=== PATIENT | male | born 1960 | race Two or more races ===

== ENCOUNTER → 2022-06-24 08:56 | Outpatient (BNVA) | payer OTHER, SELFPAY | PROVIDERS: PCP Internal Medicine; Referring Provider Internal Medicine; Visit Provider Physician Assistant | DX: Z01.818 Encounter for other preprocedural examination (principal) | CPT/HCPCS: 99202 ==

== ENCOUNTER 2022-12-21 10:36 | Day surgery (SDC) | payer OTHER, SELFPAY ==
[2022-12-16 14:02] VITALS: BMI 33.4
--- NOTE | 2022-12-20 12:58 | P.CONAN_ITS ---
HPI - Anesthesia Eval Consult details Narrative: 62yo M for Colonoscopy Eliquis for DVT PMFSH Active Problems Active Problems: All Active Problems (Updated 12/16/22 @ 13:56 by Pearl Platt RN) Encounter for screening colonoscopy (Acute) DVT (deep venous thrombosis) (Acute) Past Medical History Medical History (Updated 12/16/22 @ 13:56 by Pearl Platt RN) DM type 2 (diabetes mellitus, type 2) DVT (deep venous thrombosis) HTN (hypertension) Hyperlipidemia Family History Family History Mother Lung cancer Maternal Grandmother Diabetes Surgical History Surgical History Hx of colonoscopy Hx of laparoscopic gastric banding Social History Social History (Updated 10/18/22 @ 13:58 by Maria Ferrari) Household Members: Spouse and Children Household Members Other:: lives with - 35 years Housing: Apartment Are you a primary manager progressive care to a significant other at home: No Do you presently have visiting nurse or other home services: No Alcohol intake: former Patient Tobacco Use Status: Former Tobacco user service: No Current occupational status: employed 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 Meds Allergies Allergy/AdvReac Type Severity Reaction Status Date / Time No Known Allergies Allergy Verified 06/24/22 09:02 Home Medications Medication Instructions Recorded Confirmed Last Taken Type lisinopril 40 mg tablet 40 mg PO DAILY 06/24/22 12/16/22 12/19/22 History metformin 1,000 mg tablet 1,000 mg PO BID 06/24/22 12/16/22 12/19/22 History apixaban 5 mg tablet (Eliquis) 1 tab PO BID 10/18/22 12/16/22 12/19/22 History dulaglutide 0.75 mg/0.5 mL 1 syringe subcut QWEEK 10/18/22 12/16/22 12/20/22 History subcutaneous pen injector (Trulicity) hydrocortisone 2.5 % topical 2.5 appl topical Q12H 10/18/22 12/16/22 12/19/22 History ointment simvastatin 40 mg tablet 1 tab PO BEDTIME 10/18/22 12/16/22 12/19/22 History Exam Exam Date and Time: December 20, 2022 1258 Height,Weight and Vital Signs: Height 5 ft 5 in Weight 91.172 kg Pertinent Lab Results Pertinent Lab Results: Laboratory Tests 10/18/22 10/18/22 14:23 14:23 WBC 5.9 Hgb 14.6 Hct 45.2 Plt Count 309 Sodium 141 Potassium 4.4 Chloride 106 Carbon Dioxide 25 BUN 15 Creatinine 0.84 Assessment and Plan Assessment Anesthesia Assessment: Chart Reviewed
[2022-12-21 10:37] VITALS: BP 120/75; PULSE 73; RESP 20; TEMP 36.4; O2SAT 97; BMI 33.4
[2022-12-21 10:52] LABS: Glucose, Whole Blood 105 mg/dL (60-115)
[2022-12-21] MEDS: Lactated Ringers 1,000 ML 100 ML IVCONT (11:02)
--- NOTE | 2022-12-21 12:39 | MHC.SHP ---
Pre-Procedural Eval Section A Date of Service: 12/21/22 Section B Chief Complaint: Screening Relevant Family History (Specify if Yes): No Relevant Social History: None Present Medications: see Short Stay Collaborative assessment Medical History: Significant History (DM type 2 (diabetes mellitus, type 2) DVT (deep venous thrombosis) HTN (hypertension) Hyperlipidemia) History of Previous Operations: Relevant previous surgery/procedure and date(s) (gastric banding, colonoscopy ) Allergies: Allergies Allergy/AdvReac Type Severity Reaction Status Date / Time No Known Allergies Allergy Verified 06/24/22 09:02 Review of Systems Sugical H&P ROS: Negative: Constitution, Cardiovascular, Respiratory, Neurological, Psychiatric, Hem-Onc, Allergic/Immunologic, Gastrointestinal, Genitourinary, Musculoskeletal, Integumentary, Endocrine and Eyes/Ears/Nose/Throat Exam Surgical H&P Exam: Normal: HEENT, Normal: Heart, Normal: Lungs, Normal: Extremities, Normal: Abdomen, Normal: Skin and Normal: Neurological Plan Diagnosis/Plan: Unchanged I have reviewed the history and physical and performed a pertinent physical examination on my patient. No changes have occurred unless specified. Time Spent With Patient Time: Total time managing care of this patient today ____ minutes.
--- NOTE | 2022-12-21 12:41 | W.PM.OPN ---
Operative Note Operative Note Date of Service: 12/21/22 Narrative: Operative Information Procedure Description: Colonoscopy Indication: screening Anesthesia: MAC COLONOSCOPY Instrument: Olympus variable stiffness pediatric scope 190L Colonoscopy Monitoring: Vital signs and clinical assessment, continuous EKG monitoring, Pulse oximetry, Carbon Dioxide monitoring and blood pressure monitoring were done throughout the procedure. Colon withdrawal time was 30 minutes. Procedure: The patient was placed in the left lateral decubitis position and pre-procedure medications were administered. After a digital rectal examination of the ano-rectum, the video colonoscope was inserted into the rectum and advanced through the colon to the cecum/TI. The colonoscope was slowly withdrawn in a retrograde panoramic fashion and the colon mucosa was carefully examined including a retroflexed view of the rectum. Findings and interventions are described below. Procedure Difficulty: moderate due to prep Findings: Terminal Ileum-normal Cecum:normal, non bleeding AVM noted Ascending Colon: normal Transverse Colon -normal Descending Colon:normal Sigmoid Colon: moderate diverticulosis, 4-6 mm sessile polyp removed with cold snare Rectum: Retroflexion with small internal hemorrhoids, grade I Anorectum - normal Colon preparation: [place]oun Bowel Preparation Scale Right colon; 2 Transverse colon: 1-2 Left colon; 1-2 (0 = Unprepared colon segment with mucosa not seen due to solid stool that cannot be cleared. 1 = Portion of mucosa of the colon segment seen, but other areas of the colon segment not well seen due to staining, residual stool and/or opaque liquid. 2 = Minor amount of residual staining, small fragments of stool and/or opaque liquid, but mucosa of colon segment seen well. 3 = Entire mucosa of colon segment seen well with no residual staining, small fragments of stool or opaque liquid) Impression and Post Procedure Diagnosis: AVM polyp internal hemorrhoids diverticular disease Plan: High fiber diet leaflet Avoid straining at stool, epsom salts and sitz bath, anusol supps or cream Repeat Colonoscopy in 1 year due to fair prep or earlier if clinically indicated Above findings were reviewed with the patient and relevant handouts were provided if indicated.
--- NOTE | 2022-12-21 13:29 | P.CONAN_ITS ---
HPI - Anesthesia Eval Consult details Narrative: screening [facility] Active Problems Active Problems: All Active Problems (Updated 12/16/22 @ 13:56 by Pearl Platt, RN) Encounter for screening colonoscopy (Acute) DVT (deep venous thrombosis) (Acute) Past Medical History Medical History (Updated 12/16/22 @ 13:56 by Pearl Platt, RN) DM type 2 (diabetes mellitus, type 2) DVT (deep venous thrombosis) HTN (hypertension) Hyperlipidemia Family History Family History Mother Lung cancer Maternal Grandmother Diabetes Family history of problems with anesthesia: No Surgical History Surgical History Hx of colonoscopy Hx of laparoscopic gastric banding History of Problems with Anesthesia: No Social History Social History (Updated 10/18/22 @ 13:58 by Maria Ferrari) Household Members: Spouse and Children Household Members Other:: lives with - 35 years Housing: Apartment Are you a primary director of primary care to a significant other at home: No Do you presently have visiting nurse or other home services: No Alcohol intake: former Patient Tobacco Use Status: Former Tobacco user Use of substances other than those prescribed or required for medical reasons: No Have you been hit, kicked, punched, or otherwise hurt by someone within the past year? 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 [employer] Allergies Allergy/AdvReac Type Severity Reaction Status Date / Time No Known Allergies Allergy Verified 06/24/22 09:02 Active Medications: Current Medications Lactated Ringer's (Lr) 1,000 mls @ 100 mls/hr IVCONT .Q10H CHELITA Last Admin: 12/21/22 11:02 Dose: 100 mls/hr Home Medications Medication Instructions Recorded Confirmed Last Taken Type lisinopril 40 mg tablet 40 mg PO DAILY 06/24/22 12/16/22 12/19/22 History metformin 1,000 mg tablet 1,000 mg PO BID 06/24/22 12/16/22 12/19/22 History apixaban 5 mg tablet (Eliquis) 1 tab PO BID 10/18/22 12/16/22 12/19/22 History dulaglutide 0.75 mg/0.5 mL 1 syringe subcut QWEEK 10/18/22 12/16/22 12/20/22 History subcutaneous pen injector (Trulicity) hydrocortisone 2.5 % topical 2.5 appl topical Q12H 10/18/22 12/16/22 12/19/22 History ointment simvastatin 40 mg tablet 1 tab PO BEDTIME 10/18/22 12/16/22 12/19/22 History Exam Exam Date and Time: December 21, 2022 1329 Height,Weight and Vital Signs: Height 5 ft 5 in Weight 91.172 kg Last Vital Signs Temp 97.6 F 12/21/22 10:37 Pulse 73 12/21/22 10:37 Resp 20 12/21/22 10:37 BP 120/75 12/21/22 10:37 Pulse Ox 97 12/21/22 10:37 O2 Del Method Room Air 12/21/22 10:37 Pertinent Lab Results Pertinent Lab Results: Laboratory Tests 12/21/22 10:47 POC Glucose 105 Airway Mallampati Class: II TM Dist: >3cm Partial: Upper Loose/Missing/Broken Teeth: Yes Heart: rr Lungs: cta Assessment and Plan Assessment Anesthesia Assessment: Anesthesia Plan Discussed Final Anesthetic Review Family History of Problems with Anesthesia: No History of Problems with Anesthesia: No NPO: Yes ASA Class: II Final Preanesthetic Review: No Changes in Pt Med Stat, Meds/Allgs Chart Reviewed, Consent Obtained/Reviewed and Anes Risks/Benef Reviewed Patient Risk: Low Procedure Risk: Low Anesthetic Plan Anesthetic Plan: MAC: Disposition: Standard PACU
[2022-12-21 13:58] VITALS: BP 116/70; PULSE 66; RESP 16; TEMP 36.1; O2SAT 97
[2022-12-21 14:13] VITALS: BP 117/68; PULSE 63; RESP 16; TEMP 36.2; O2SAT 98
== END 2022-12-21 14:40 | disposition home or self-care (01) ==
PROVIDERS: PCP Hospitalist; Visit Provider Internal Medicine Gastroenterology
PROC: 0DJD8ZZ Inspection of Lower Intestinal Tract, Via Natural or Artificial Opening Endoscopic (ICD-10-PCS; CPT 45378; principal; 2022-12-21 11:30)
DX: Z12.11 Encounter for screening for malignant neoplasm of colon (principal); K63.5 Polyp of colon; K55.20 Angiodysplasia of colon without hemorrhage; K57.30 Diverticulosis of large intestine without perforation or abscess without bleeding; K64.0 First degree hemorrhoids; I10 Essential (primary) hypertension; E78.5 Hyperlipidemia, unspecified; E11.9 Type 2 diabetes mellitus without complications; I82.409 Acute embolism and thrombosis of unspecified deep veins of unspecified lower extremity; Z79.85 Long-term (current) use of injectable non-insulin antidiabetic drugs; Z79.01 Long term (current) use of anticoagulants; Z79.899 Other long term (current) drug therapy; Z98.84 Bariatric surgery status; Z87.891 Personal history of nicotine dependence
CPT/HCPCS: 45385; 82947; 88305

== ENCOUNTER → 2023-01-07 09:07 | Outpatient (BNVA) | payer OTHER, SELFPAY | PROVIDERS: PCP Hospitalist; Visit Provider Internal Medicine Gastroenterology | DX: Z71.2 Person consulting for explanation of examination or test findings (principal) | CPT/HCPCS: 99212 ==

== ENCOUNTER → 2023-01-31 09:53 | Outpatient (BNVA) | payer OTHER, SELFPAY | PROVIDERS: PCP Hospitalist; Visit Provider Urology | DX: N48.1 Balanitis (principal); N47.8 Other disorders of prepuce | CPT/HCPCS: 51798; 99202 ==

== ENCOUNTER 2023-03-29 09:30 | Day surgery (SDC) | payer OTHER, SELFPAY ==
[2023-03-25 14:24] VITALS: BMI 35.2
--- NOTE | 2023-03-28 10:54 | HO.ANESPROP2 ---
Documented by User: Sammie Delacruz NP 03/28/23 10:56 HPI - Anesthesia Eval Consult details Narrative: 63yo M for Circumcision Eliquis for hx DVT PMFSH Active Problems Active Problems: All Active Problems (Updated 03/25/23 @ 14:27 by Kala Gridre RN) Encounter for screening colonoscopy (Acute) DVT (deep venous thrombosis) (Acute) Screening PSA (prostate specific antigen) (Acute) Balanitis (Acute) Redundant foreskin (Acute) Past Medical History Medical History DM type 2 (diabetes mellitus, type 2) DVT (deep venous thrombosis) History of heartburn HTN (hypertension) Hx of fracture of leg Hyperlipidemia Family History Family History Mother Lung cancer Maternal Grandmother Diabetes Family history of problems with anesthesia: No Surgical History Surgical History Hx of colonoscopy Hx of laparoscopic gastric banding History of Problems with Anesthesia: No Social History Social History Household Members: Spouse and Children Household Members Other:: lives with - 35 years Housing: Apartment Are you a primary manager medicare marketing to a significant other at home: No Do you presently have visiting nurse or other home services: No Alcohol intake: former Patient Tobacco Use Status: Former Tobacco user Quit Date: 2021 Tobacco use type: Cigarette Have you been hit, kicked, punched, or otherwise hurt by someone within the past year? 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 Meds Allergies Allergy/AdvReac Type Severity Reaction Status Date / Time No Known Allergies Allergy Verified 03/29/23 10:29 Home Medications Medication Instructions Recorded Confirmed Last Taken Type metformin 1,000 mg tablet 1,000 mg PO BID 06/24/22 03/25/23 12/19/22 History apixaban 5 mg tablet (Eliquis) 1 tab PO BID 10/18/22 03/25/23 03/25/23 History dulaglutide 0.75 mg/0.5 mL 1 syringe subcut QWEEK 10/18/22 03/25/23 12/20/22 History subcutaneous pen injector (Trulicity) hydrocortisone 2.5 % topical 2.5 appl topical Q12H 10/18/22 03/25/23 12/19/22 History ointment simvastatin 40 mg tablet 1 tab PO BEDTIME 10/18/22 03/25/23 12/19/22 History empagliflozin 10 mg tablet 10 mg PO DAILY 01/07/23 03/25/23 Unknown History (Jardiance) lisinopril 20 mg tablet 20 mg PO DAILY 01/07/23 03/25/23 Unknown History Tums PRN Heartburn 03/25/23 03/25/23 Unknown History Exam Exam Date and Time: March 28, 2023 1054 Height,Weight and Vital Signs: Height 5 ft 4 in Weight 92.986 kg Pertinent Lab Results Pertinent Lab Results: Laboratory Tests 10/18/22 10/18/22 14:23 14:23 WBC 5.9 Hgb 14.6 Hct 45.2 Plt Count 309 Sodium 141 Potassium 4.4 Chloride 106 Carbon Dioxide 25 BUN 15 Creatinine 0.84 Assessment and Plan Assessment Anesthesia Assessment: Chart Reviewed Final Anesthetic Review Family History of Problems with Anesthesia: No History of Problems with Anesthesia: No Documented by User: Kristal Locke MD 03/29/23 11:53 [facility] Past Medical History Medical History DM type 2 (diabetes mellitus, type 2) DVT (deep venous thrombosis) History of heartburn HTN (hypertension) Hx of fracture of leg Hyperlipidemia Family History Family History Mother Lung cancer Maternal Grandmother Diabetes Surgical History Surgical History Hx of colonoscopy Hx of laparoscopic gastric banding Social History Social History Household Members: Spouse and Children Household Members Other:: lives with - 35 years Housing: Apartment Are you a primary manager medicare marketing to a significant other at home: No Do you presently have visiting nurse or other home services: No Alcohol intake: former Patient Tobacco Use Status: Former Tobacco user Quit Date: 2021 Tobacco use type: Cigarette Have you been hit, kicked, punched, or otherwise hurt by someone within the past year? 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 Meds Allergies Allergy/AdvReac Type Severity Reaction Status Date / Time No Known Allergies Allergy Verified 03/29/23 10:29 Home Medications Medication Instructions Recorded Confirmed Last Taken Type metformin 1,000 mg tablet 1,000 mg PO BID 06/24/22 03/25/23 12/19/22 History apixaban 5 mg tablet (Eliquis) 1 tab PO BID 10/18/22 03/25/23 03/25/23 History dulaglutide 0.75 mg/0.5 mL 1 syringe subcut QWEEK 10/18/22 03/25/23 12/20/22 History subcutaneous pen injector (Trulicity) hydrocortisone 2.5 % topical 2.5 appl topical Q12H 10/18/22 03/25/23 12/19/22 History ointment simvastatin 40 mg tablet 1 tab PO BEDTIME 10/18/22 03/25/23 12/19/22 History empagliflozin 10 mg tablet 10 mg PO DAILY 01/07/23 03/25/23 Unknown History (Jardiance) lisinopril 20 mg tablet 20 mg PO DAILY 01/07/23 03/25/23 Unknown History Tums PRN Heartburn 03/25/23 03/25/23 Unknown History Exam Airway Mallampati Class: III TM Dist: >3cm Neck ROM: Full Partial: Upper Loose/Missing/Broken Teeth: Yes and Upper Heart: RRR Lungs: CTA Assessment and Plan Assessment Anesthesia Assessment: Anesthesia Plan Discussed Final Anesthetic Review NPO: Yes ASA Class: II Final Preanesthetic Review: Meds/Allgs Chart Reviewed, Consent Obtained/Reviewed and Anes Risks/Benef Reviewed Patient Risk: Low Procedure Risk: Low Anesthetic Plan Anesthetic Plan: GA Disposition: Standard PACU
[2023-03-29] VITALS (9 sets, daily range): BP systolic 85–121; BP diastolic 34–75; PULSE 46–76; RESP 16–18; TEMP 36.1–36.6; O2SAT 92–99
[2023-03-29] MEDS: Lactated Ringers 1,000 ML 100 ML IVCONT (10:49)
[2023-03-29 10:56] LABS: Glucose, Whole Blood 150 mg/dL (60-115)
--- NOTE | 2023-03-29 11:48 | MHC.SHP ---
Pre-Procedural Eval Section A Date of Service: 03/29/23 Section B Chief Complaint: Balanitis Details of Present Illness: 63 year old male with diabetes and recurrent balanitis for circumcision Medical History: No relevant PMH (diabetes) Allergies: Allergies Allergy/AdvReac Type Severity Reaction Status Date / Time No Known Allergies Allergy Verified 03/29/23 10:29 Review of Systems Review of Systems Comment: 10 point ROS negative other then state in HPI Exam Surgical H&P Exam: Normal: HEENT, Normal: Heart, Normal: Lungs and Normal: Neurological Plan Diagnosis/Plan: Unchanged I have reviewed the history and physical and performed a pertinent physical examination on my patient. No changes have occurred unless specified. Circumcision Time Spent With Patient Time: Total time managing care of this patient today ____ minutes.
--- NOTE | 2023-03-29 14:07 | P.OP_ITS ---
Operative Note Operative Note Date of Service: 03/29/23 Narrative: PreOperative Diagnosis:? ?Recurrent Balanitis, Post Operative Diagnosis:?Recurrent Balanitis, Procedure:?Circumcision Surgeon:?Dr Rosanna Harp Anesthesia:? General Procedure: After informed consent was verified the patient was brought to the operating room and placed in a supine position.? Anesthesia was performed per protocol. The patient was prepped and draped in the usual sterile fashion. Safety pause time-out was performed. Antibiotics confirmed. Penile block was performed. With the foreskin over the glans a circumferential incision is made at the level of the moreira. The fore skin was then retracted and a circumferential incision was made 0.5 cm below the moreira. At the frenulum there were a few small pearly lumps suggestive of molluscum contagiosum. The foreskin is removed with cautery. The skin is closed in 4 quadrants with 4-0 chromic, each quadrant closed with interrupted 4-0 chromic, bacitracin ointment was used over the incision and incision covered with cling. The patient tolerated the procedure well and was transferred to the [facility] upon completion. Complications: None
[2023-03-29 14:24] LABS: Glucose, Whole Blood 132 mg/dL (60-115)
== END 2023-03-29 15:28 | disposition home or self-care (01) ==
PROVIDERS: PCP Hospitalist; Visit Provider Urology
PROC: (CPT 54161; principal; 2023-03-29 11:20)
DX: N48.1 Balanitis (principal); N47.8 Other disorders of prepuce; E11.9 Type 2 diabetes mellitus without complications; I10 Essential (primary) hypertension; Z86.718 Personal history of other venous thrombosis and embolism
CPT/HCPCS: 54161; 82947; 88304; J0131; J0690; J2250; J3010

== ENCOUNTER → 2023-03-29 09:30 | Outpatient (BNV) | payer OTHER, SELFPAY | PROVIDERS: PCP Hospitalist; Visit Provider Urology | DX: N48.1 Balanitis (principal) | CPT/HCPCS: 54161 ==

== ENCOUNTER → 2023-04-15 09:07 | Outpatient (BNVA) | payer OTHER, SELFPAY | PROVIDERS: PCP Hospitalist; Visit Provider Urology ==

== ENCOUNTER 2023-04-29 09:11 | Outpatient (AMB) | payer OTHER, SELFPAY ==
--- NOTE | 2023-04-28 16:22 | A.OFFVIS_ITS ---
Intake Intake Visit Reasons: s/p circumcision Intake Note: Patient presents today for a follow-up on Post Op Circumcision: Meds- None Allergies to Antibiotic- No Known Allergies Blood Thinner- Eliquis Circular Saw Operator Required: No Accompanied by: Self / Same As Patient Allergies No Known Allergies Allergy (Verified 04/29/23 09:17) HPI HPI Comments History of Present Illness Details Jamie is a 63-year-old male who presents today to the office for a follow up on post op circumcision. 04/29/2023? He was last seen by me on 01/31/2023 for balanitis. He was referred to the office by his PCP for circumcision. Circumcision procedure was discussed to be scheduled at that time. He is a status post circumcision done on 03/29/2023. He has a past medical history significant for diabetes. The circumcision site is healing well. Patient did not have PSA done prior to this visit, but he will have PSA today or next week. I will call him if the PSA is abnormal to follow up earlier than one year scheduled appointment. Examination: Circumcision incision site is healing well; no signs of infections. Review of chart: Last visit: 01/31/2023: The patient is a 62-year-old gentleman with history of type-2 diabetes about 30 years. Recently he is having irritation around foreskin and has received a cream from his PCP. He has been referred to the office by his PCP for circumcision. Denies incomplete bladder emptying. Denies nocturia. I discussed PSA screening with him. AUA symptom score 2. Evaluation today-- Blood: 10 Eddie/uL, leukocytes: negative. Bladder scan PVR: 0 mL. On examination-- his foreskin is able to be retracted there is mild irritation of the foreskin. Plan: Circumcision procedure discussed to be scheduled. PSA blood work was ordered.?? 04/29/2023: Evaluation today?UA? Leukocytes: negative; blood: 10 Eddie; glycosuri a: 3+ 04/29/2023: Plan: Follow up in 1 year blood work prior. If the blood work is abnormal, then the patient will be contacted to follow up earlier. [facility], [facility] Medical History DM type 2 (diabetes mellitus, type 2) DVT (deep venous thrombosis) History of heartburn HTN (hypertension) Hx of fracture of leg Hyperlipidemia Surgical History Hx of circumcision Hx of colonoscopy Hx of laparoscopic gastric banding Family History Mother Lung cancer Maternal Grandmother Diabetes Social History Household Members: Spouse and Children Household Members Other:: lives with - 35 years Housing: Apartment Are you a primary animal care service worker to a significant other at home: No Do you presently have visiting nurse or other home services: No Alcohol intake: former Patient Tobacco Use Status: Former Tobacco user Quit Date: 2021 Tobacco use type: Cigarette service: No Current occupational status: employed 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 Review of Systems Const All systems reviewed & are unremarkable except as noted in HPI and below Reports no additional complaints Eyes Reports no additional complaints ENT Reports no additional complaints Card Denies dyspnea Resp Denies cough and Denies dyspnea GI Reports no additional complaints Musc Reports no additional complaints Skin/Breast Denies rash and Denies unusual bruising Neuro Reports no additional complaints Psych Reports no additional complaints Endo Reports no additional complaints William/Lymph Reports no additional complaints Aller/Immun Reports no additional complaints Results AMB Urinalysis, Automated UA Leukoctes 0 Ricky/uL Last Edit by GODWIN Michaels on 04/29/23 10:13 UA Nitrite Negative Last Edit by GODWIN Michaels on 04/29/23 10:13 UA Urobilinogen 0.2 mg/dL Last Edit by GODWIN Michaels on 04/29/23 10:1 3 UA Protein 15 mg/dL Last Edit by GODWIN Michaels on 04/29/23 10:13 UA pH 6.0 Last Edit by SERGIO MichaelsA on 04/29/23 10:13 UA Blood 10 Eddie/uL Last Edit by Arturo Merchant A on 04/29/23 10:13 UA Specific [place] 1.025 Last Edit by Arturo Merchant, A on 04/29/23 10: 13 UA Ketone Negative Last Edit by Arturo Merchant A on 04/29/23 10:13 UA Bilirubin 0 mg/dL Last Edit by Arturo Merchant, A on 04/29/23 10:13 UA Glucose 1000 mg/dL Last Edit by Arturo Merchant, A on 04/29/23 10:13 3+ Arturo Merchant 04/29/23 10:13 Results Reviewed Results Reviewed: Laboratory Last Values Urine pH (Auto) 6.0 04/29/23 09:18 Specific [place] (Auto) 1.025 04/29/23 09:18 Urine Protein (Auto) 15 mg/dL 04/29/23 09:18 Glucose (UA)(Auto) 1000 mg/dL 04/29/23 09:18 Urine Ketones (Auto) Negative 04/29/23 09:18 Urine Blood (Auto) 10 Eddie/uL 04/29/23 09:18 Urine Nitrite (Auto) Negative 04/29/23 09:18 Urine Bilirubin (Auto) 0 mg/dL 04/29/23 09:18 Urine Urobilinogen (Auto) 0.2 mg/dL 04/29/23 09:18 Leukocyte Esterase (Auto) 0 Ricky/uL 04/29/23 09:18 Diagnosis Foreskin, circumcision:? Benign congested skin with acute and chronic inflammation and intraepithelial fungal hyphae and buds, consistent with acute fungal balanitis. Clinical History Balanitis Microscopic Description Microscopic sections reviewed. Material Received Foreskin Gross Description Received in formalin labeled ?foreskin is a 7.0 x 2.8-3.5 x 0.45 cm wrinkled, butterfly-shaped portion of tran foreskin which is sectioned to reveal congested, tran-pink cut surfaces.? Also received is a 1.4 x 0.6 cm additional portion of wrinkled, gregorio-tran foreskin excised to a maximum depth of 0.35 cm which is sectioned to reveal unremarkable fibrous cut surfaces.? Print Buyer sections are submitted in cassettes A1 and A2.? Assessment & Plan Assessment & Plan (1) Screening PSA (prostate specific antigen): Code(s): Z12.5 - Encounter for screening for malignant neoplasm of prostate (2) Balanitis: Code(s): N48.1 - Balanitis (3) Redundant foreskin: Code(s): N47.8 - Other disorders of prepuce (4) Diabetes: Code(s): E11.9 - Type 2 diabetes mellitus without complications Plan Follow up in 1 year blood work prior. If the blood work is abnormal, then the patient will be contacted to follow up earlier. Orders: Orders PSA,Total (Free>4and<10) 10 Months Z12.5 - Encounter for screening for malignant neoplasm of prostate AMB Urinalysis Automated Today Z13.9 - Encounter for screening, unspecified Patient Instructions: The patient had an opportunity to ask questions regarding treatment plan. All questions were answered. Imaging, Laboratory studies and physical exam results were discussed and reviewed in detail. No major barriers to understanding were identified. The patient expressed understanding and agreement with the above treatment plan.? ? ? The patient is aware they should contact our office by phone for worsening of their current condition or the appearance of new symptoms. Compliance is encouraged with any medications and followup testing that is ordered.? ? ? It is a privilege to be allowed the opportunity to participate in the urologic care of your patient. If you have any questions or concerns regarding treatment for the above conditions please do not hesitate to contact me. The office telephone contact is [phone].? ? ? This note is constructed in part using voice recognition software. While every effort has been made to ensure accuracy rn correctional errors may have been included.? ? ? Yours sincerely,? ? ? Rosanna Harp MD? ? Coding Level of Care Code Est Pt Level 3 (83158) Diagnoses Screening PSA (prostate specific antigen) Z12.5 Balanitis N48.1 Redundant foreskin N47.8 Diabetes E11.9
== END 2023-04-29 09:53 | disposition home or self-care (01) ==
PROVIDERS: PCP Hospitalist; Visit Provider Urology
DX: Z12.5 Encounter for screening for malignant neoplasm of prostate (principal); N48.1 Balanitis; N47.8 Other disorders of prepuce; E11.9 Type 2 diabetes mellitus without complications; Z13.9 Encounter for screening, unspecified
CPT/HCPCS: 99213

== ENCOUNTER → 2023-04-29 09:11 | Outpatient (BNVA) | payer OTHER, SELFPAY | PROVIDERS: PCP Hospitalist; Visit Provider Urology ==

== ENCOUNTER 2023-04-29 09:49 | Outpatient (REF) | payer OTHER, SELFPAY ==
[2023-04-29 11:10] LABS: PSA,Total (Free>4and<10) 0.65 ng/mL (0.00-4.00)
== END 2023-04-29 09:50 | disposition home or self-care (01) ==
LOC: HO.10HDL 09:49
PROVIDERS: Visit Provider Urology
DX: Z12.5 Encounter for screening for malignant neoplasm of prostate (principal); N48.1 Balanitis; N47.8 Other disorders of prepuce; E11.9 Type 2 diabetes mellitus without complications
CPT/HCPCS: 36415; 81003; 84153; 99212